=== PATIENT | male | born 1960 | race Hispanic/Latino ===

== ENCOUNTER 2017-11-03 11:30 | Emergency (ER) | payer SELFPAY ==
[2017-11-03] MEDS ORDERED: METOPROLOL TARTRATE 1 MG/ML 5ML VIAL IV ONE (12:31)
== END 2017-11-03 13:06 | disposition home or self-care (01) ==
LOC: EDH 11:30
DX: G51.0 Bell's palsy (principal); I10 Essential (primary) hypertension; E11.9 Type 2 diabetes mellitus without complications
CPT/HCPCS: 99283; J3490; 99281